=== PATIENT | male | born 1990 | race Caucasian/White ===

== ENCOUNTER 2023-01-14 19:53 | Emergency (ER) | payer OTHER ==
[~2023-01-14] VITALS: Ht 182.9 cm; Wt 124.7 kg
[2023-01-14 20:00] VITALS: BP 146/89
--- NOTE | 2023-01-14 20:00 | NUR ---
TO BED AMBULATORY
[2023-01-14 21:37] LABS: BASOPHILS % (AUTO) 0.4 % (0.0-2.0); EOSINOPHILS % (AUTO) 0.3 % (0.0-4.0); HEMATOCRIT 42.5 % (36-52); HEMOGLOBIN 14.6 g/dL (12.0-18.0); LYMPHOCYTES # (AUTO) 2.7 K/uL (2.0-11.5); LYMPHOCYTES % (AUTO) 30.8 % (20.5-51.1); MEAN CORPUSCULAR HEMOGLOBIN 31 pg (27-31); MEAN CORPUSCULAR HGB CONC 34 g/dL (33-37); MEAN CORPUSCULAR VOLUME 90.4 fL (80-94); MONOCYTES # (AUTO) 0.8 K/uL (0.8-1.0); MONOCYTES % (AUTO) 9.4 % (1.7-9.3); NEUTROPHILS # (AUTO) 5.3 K/uL (1.8-7.7); NEUTROPHILS % (AUTO) 59.1 % (42.2-75.2); PLATELET COUNT (AUTO) 269 K/uL (140-450); RED BLOOD CELL COUNT(AUTO) 4.71 MIL/uL (4.20-6.10); RED CELL DISTRIBUTION WIDTH 12.8 % (11.6-13.7); WHITE BLOOD COUNT (AUTO) 8.9 K/uL (4.8-10.8)
[2023-01-14 21:54] LABS: ANION GAP 13.2 (8-16); CARBON DIOXIDE 25.4 mmol/L (21-32); CREATININE 1.2 mg/dL (0.6-1.3); POTASSIUM 3.6 mmol/L (3.5-5.1); TOTAL BILIRUBIN 0.4 mg/dL (0.0-1.0)
--- NOTE | 2023-01-14 22:13 | NUR ---
32YR MALE BIB SELF C/O "HEARING VOICES" PT HAS HX OF MINERVA. PT IS A&OX4. DENIES SI OR PAST HX OF . PT IS ANSWERING ALL APPROPRIAETLY. ALL ITEMS REMOVED FROM ROOM FOR PT SAFTEY. BED AT LOWEST POSITION SIDE RAILS UP X2. PT IN VIEW FROM NURSES STATION JAYASHREE PALMA
[2023-01-14 22:37] LABS: BARBITURATE, URINE NEGATIVE ng/ml (NEG <=200); BENZODIAZEPINE, URINE NEGATIVE ng/mL (NEG <=200); CANNABINOID, URINE NEGATIVE ng/mL (NEG <=50); COCAINE, URINE NEGATIVE ng/mL (NEG <=300); OPIATE, URINE NEGATIVE ng/mL (NEG <=2000); PHENCYCLIDINE SCREEN,URINE NEGATIVE ng/mL (NEG <=25)
--- NOTE | 2023-01-14 23:15 | NUR ---
; TELE PSYCH CONSULT AT BESIDE.
--- NOTE | 2023-01-14 23:58 | NUR ---
23:58 ; PER PT. MEDICALLY CLEARED. NEEDS PLACEMENT. FAXED OVER CLINICALS TO [facility].
--- NOTE | 2023-01-15 00:03 | NUR ---
COVID AND URINE COLLECTED AND SENT OFF TO LAB
--- NOTE | 2023-01-15 00:54 | NUR ---
[facility]OTA CONTACTED FOR 5150 HOLD.
--- NOTE | 2023-01-15 00:58 | NUR ---
[facility] AT BEDSIDE.
--- NOTE | 2023-01-15 01:21 | NUR ---
PT PLACED ON 5150 BY [place]
--- NOTE | 2023-01-15 02:00 | NUR ---
5150 WRITTEN UP BY [place] [facility]. 15Q SI CHECKS
--- NOTE | 2023-01-15 03:29 | NUR ---
PT SLEEPING RESP EVEN AND UNLABORED. PT IN VIEW FROM NURSING STATION
--- NOTE | 2023-01-15 05:27 | NUR ---
PT SLEEPING IN BED . PENDING TRANSFER TO HIGHER LEVEL OF CARE. FAXES TO GO OUT FOR PLACEMENT THIS AM. RESP EVEN AND UNLABORED. PT DENIES PAIN CP OR SOB
--- NOTE | 2023-01-15 11:02 | NUR ---
WOKE UP, ALERT X 4, DENIES ANY SI OR HI, EAGER TO BE PLACED, AWARE OF WAIT FOR PLACEMENT. SANDWICH GIVEN REQUESTED. LUNCH ORDERED
--- NOTE | 2023-01-15 12:13 | NUR ---
Packet has been fax to the following facilities Nirav Whitaker [facility] [place] [facility]
--- NOTE | 2023-01-15 14:58 | NUR ---
Called and s/w Maggi to ask if anyone accepted patient. Patient has been accepted at [facility]
--- NOTE | 2023-01-15 16:52 | NUR ---
SECURITY CALLED FOR BELONGINGS
--- NOTE | 2023-01-15 17:01 | NUR ---
[facility] AT BEDSIDE
[2023-01-15 17:34] VITALS: BP 132/84
--- NOTE | 2023-01-15 17:36 | NUR ---
Patient Tranfers to outside Facility [facility] Physician: DR WALTERS Location:[facility]
== END 2023-01-15 17:36 | disposition short-term general hospital (02) ==
LOC: MED 19:53
DX: R45.851 Suicidal ideations (principal); Z20.822 Contact with and (suspected) exposure to COVID-19; R44.0 Auditory hallucinations; Z79.899 Other long term (current) drug therapy
CPT/HCPCS: 36415; 80053; 80305; 85025; 87426; 87635; 99285; C9803